=== PATIENT | female | born 1965 | race Hispanic/Latino ===

== ENCOUNTER 2021-06-07 11:44 | Inpatient (IN) | payer OTHER ==
[~2021-06-07] VITALS: Ht 160 cm; Wt 72.8 kg
[2021-06-07 11:49] VITALS: BP 151/78
[2021-06-07 12:30] LABS: BASOPHILS % (AUTO) 0.6 % (0.0-5.0); EOSINOPHILS % (AUTO) 0.8 % (0.0-8.0); HEMATOCRIT 46.2 % (36-48); LYMPHOCYTES % (AUTO) 23.9 % (21.0-51.0); MEAN CORPUSCULAR HGB CONC 34.6 g/dL (32.0-36.0); MEAN CORPUSCULAR VOLUME 92.4 fL (79-99); MONOCYTES % (AUTO) 8.4 % (3.0-13.0); PLATELET COUNT (AUTO) 301 K/uL (130-400); RED CELL DISTRIBUTION WIDTH 12.8 % (11.0-15.5); WHITE BLOOD COUNT (AUTO) 14.2 K/uL (4.8-10.8)
[2021-06-07 12:40] LABS: INR 1.03 (0.85-1.15); PROTHROMBIN TIME 11.2 SEC (9.6-11.6)
[2021-06-07 12:41] LABS: PARTIAL THROMBOPLASTIN TIME 30.7 SEC (26.3-35.5)
[2021-06-07 12:43] LABS: CREATININE 0.8 mg/dL (0.5-1.5); POTASSIUM 3.5 mmol/L (3.5-5.1)
[2021-06-07 12:48] LABS: ALBUMIN 3.6 g/dL (3.5-5.0); BILIRUBIN,TOTAL 0.8 mg/dL (0.2-1.0); TOTAL PROTEIN, SERUM 8.3 g/dL (6.0-8.3)
[2021-06-07 12:52] LABS: B-TYPE NATRIURETIC PEPTIDE 266 pg/mL (0-100)
[2021-06-07 13:39] LABS: CRP QUANTITATIVE 29.2 mg/L (0.00-9.0); MAGNESIUM 1.8 mg/dL (1.80-2.40)
[2021-06-07 15:11] LABS: APPEARANCE,URINE Clear (CLEAR); BILIRUBIN,URINE Moderate (NEGATIVE); COLOR,URINE Dark Yellow (YELLOW); GLUCOSE, URINE (UA) Negative (NEGATIVE); KETONES,URINE Trace mg/dL (NEGATIVE); LEUKOCYTE ESTERASE ,URINE Trace (NEGATIVE); NITRATE,URINE Positive (NEGATIVE); OCCULT BLOOD,URINE Negative (NEGATIVE); PH,URINE 5.5 (5.0-8.0); PROTEIN,URINE POS 2+ mg/dL (NEGATIVE)
[2021-06-07 15:19] LABS: AMPHET/METH SCREEN,URINE NEGATIVE (NEGATIVE); BARBITURATE SCREEN, URINE NEGATIVE (NEGATIVE); BENZODIAZEPINES SCREEN,URINE NEGATIVE (NEGATIVE); CANNABINOID SCREEN,URINE POSITIVE (NEGATIVE); COCAINE SCREEN,URINE POSITIVE (NEGATIVE); OPIATE SCREEN,URINE NEGATIVE (NEGATIVE); PHENCYCLIDINE SCREEN,URINE NEGATIVE (NEGATIVE)
[2021-06-07 15:29] LABS: BACTERIA,URINE Few /HPF (None Seen); MUCUS,URINE Moderate LPF (None Seen); SQUAMOUS EPITHELIAL CELL,UR Few /HPF (0-2)
[2021-06-07] MEDS ORDERED: AMP/SULBAC 3GM+NS 100ML 100 ML IV ONE (16:00)
[2021-06-07] MEDS ORDERED: UNASYN 3GM VIAL IV ONE (16:00)
[2021-06-07 19:47] VITALS: BP 183/108
[2021-06-07] MEDS ORDERED: MORPHINE 2 MG SYG IV PRN (21:00)
[2021-06-07] MEDS ORDERED: ONDANSETRON 4MG INJ IV PRN (21:00)
[2021-06-07] MEDS: 0.9%NACL 50ML 50 ML IV SCH (21:30)
[2021-06-07] MEDS: LACTATED RINGERS 1000ML 1,000 ML IV SCH (21:30)
[2021-06-07] MEDS: ZOSYN 3.375GM+NS 50ML 50 ML IV SCH (21:30)
[2021-06-07] MEDS: FAMOTIDINE 20MG VIAL IV SCH (21:30)
[2021-06-07 21:58] VITALS: BP 162/70
[2021-06-07] MEDS ORDERED: LISINOPRIL 10 MG TABLET PO STA (22:09)
[2021-06-08] VITALS (7 sets, daily range): BP systolic 156–184; BP diastolic 57–84
[2021-06-08] MEDS: 0.9%NACL 50ML 50 ML IV SCH ×3 (05:25→21:00)
[2021-06-08] MEDS: ZOSYN 3.375GM+NS 50ML 50 ML IV SCH ×3 (05:25→22:47)
[2021-06-08 06:56] LABS: BASOPHILS % (AUTO) 0.3 % (0.0-5.0); EOSINOPHILS % (AUTO) 1.1 % (0.0-8.0); HEMATOCRIT 43.3 % (36-48); LYMPHOCYTES % (AUTO) 27.4 % (21.0-51.0); MEAN CORPUSCULAR HGB CONC 34.4 g/dL (32.0-36.0); MEAN CORPUSCULAR VOLUME 92.9 fL (79-99); MONOCYTES % (AUTO) 8.5 % (3.0-13.0); NEUTROPHILS % (AUTO) 62.4 % (40.0-77.0); PLATELET COUNT (AUTO) 244 K/uL (130-400); RED BLOOD CELL COUNT(AUTO) 4.66 MIL/uL (4.00-5.50); RED CELL DISTRIBUTION WIDTH 12.8 % (11.0-15.5); WHITE BLOOD COUNT (AUTO) 11.6 K/uL (4.8-10.8)
[2021-06-08 07:24] LABS: CREATININE 0.8 mg/dL (0.5-1.5); MAGNESIUM 1.9 mg/dL (1.80-2.40); PHOSPHORUS 3.8 mg/dL (2.5-4.9); POTASSIUM 3.3 mmol/L (3.5-5.1); THYROID STIMULATING HORMONE 0.33 uIU/mL (0.36-3.74)
[2021-06-08] MEDS ORDERED: LISINOPRIL 10 MG TABLET PO SCH (09:00)
[2021-06-08] MEDS: FAMOTIDINE 20MG VIAL IV SCH ×2 (09:15→22:46)
[2021-06-08] MEDS: ASPIRIN 81 MG EC TAB PO SCH (09:15)
[2021-06-08] MEDS: LACTATED RINGERS 1000ML 1,000 ML IV SCH (10:20)
[2021-06-08] MEDS: AMLODIPINE 5 MG TAB PO SCH ×2 (13:23→22:47)
[2021-06-08] MEDS: HYDROCODONE/ACETAMINOPHEN 5/325 MG TAB PO PRN (13:33)
[2021-06-09] VITALS (7 sets, daily range): BP systolic 113–201; BP diastolic 58–94
[2021-06-09] MEDS ORDERED: POTASSIUM CHLORIDE 10% ELIXIR 20 MEQ/15 ML UDCUP PO PRN (03:30)
[2021-06-09] MEDS ORDERED: POTASSIUM CHLORIDE 20MEQ/100ML 100 ML IV PRN (03:30)
[2021-06-09] MEDS ORDERED: LIDOCAINE HCL-MPF 1% 2ML VIAL IV PRN (03:30)
[2021-06-09 05:03] LABS: BASOPHILS % (AUTO) 0.5 % (0.0-5.0); EOSINOPHILS % (AUTO) 1.7 % (0.0-8.0); HEMATOCRIT 41.4 % (36-48); LYMPHOCYTES % (AUTO) 41.6 % (21.0-51.0); MEAN CORPUSCULAR HEMOGLOBIN 31.7 pg (27.0-33.0); MEAN CORPUSCULAR HGB CONC 34.8 g/dL (32.0-36.0); MEAN CORPUSCULAR VOLUME 91.2 fL (79-99); MONOCYTES % (AUTO) 6.7 % (3.0-13.0); NEUTROPHILS % (AUTO) 49.3 % (40.0-77.0); PLATELET COUNT (AUTO) 267 K/uL (130-400); RED BLOOD CELL COUNT(AUTO) 4.54 MIL/uL (4.00-5.50); RED CELL DISTRIBUTION WIDTH 12.1 % (11.0-15.5); WHITE BLOOD COUNT (AUTO) 10.1 K/uL (4.8-10.8)
[2021-06-09 05:09] LABS: CREATININE 0.7 mg/dL (0.5-1.5); POTASSIUM 3.4 mmol/L (3.5-5.1)
[2021-06-09] MEDS: ZOSYN 3.375GM+NS 50ML 50 ML IV SCH ×3 (06:05→20:03)
[2021-06-09] MEDS: 0.9%NACL 50ML 50 ML IV SCH ×3 (06:05→20:03)
[2021-06-09] MEDS: KCL 20 MEQ ERTAB PO PRN ×3 (06:37→12:28)
[2021-06-09] MEDS: ASPIRIN 81 MG EC TAB PO SCH (08:10)
[2021-06-09] MEDS: FAMOTIDINE 20MG VIAL IV SCH ×2 (08:10→20:03)
[2021-06-09] MEDS: AMLODIPINE 5 MG TAB PO SCH ×2 (08:10→20:04)
[2021-06-09] MEDS: HYDROCODONE/ACETAMINOPHEN 5/325 MG TAB PO PRN ×2 (08:35→20:04)
[2021-06-09] MEDS ORDERED: HYDRALAZINE 20MG/ML VIAL IV PRN (12:00)
[2021-06-09] MEDS ORDERED: LISINOPRIL 10 MG TABLET PO SCH (12:00)
[2021-06-10 04:16] VITALS: BP 183/81
[2021-06-10 04:54] LABS: BASOPHILS % (AUTO) 0.6 % (0.0-5.0); EOSINOPHILS % (AUTO) 2.9 % (0.0-8.0); HEMATOCRIT 43.4 % (36-48); LYMPHOCYTES % (AUTO) 43.8 % (21.0-51.0); MEAN CORPUSCULAR HGB CONC 34.1 g/dL (32.0-36.0); MEAN CORPUSCULAR VOLUME 93.7 fL (79-99); MONOCYTES % (AUTO) 7.9 % (3.0-13.0); NEUTROPHILS % (AUTO) 44.6 % (40.0-77.0); PLATELET COUNT (AUTO) 296 K/uL (130-400); RED BLOOD CELL COUNT(AUTO) 4.63 MIL/uL (4.00-5.50); RED CELL DISTRIBUTION WIDTH 12.3 % (11.0-15.5)
[2021-06-10] MEDS: 0.9%NACL 50ML 50 ML IV SCH ×2 (05:09→12:44)
[2021-06-10] MEDS: ZOSYN 3.375GM+NS 50ML 50 ML IV SCH ×2 (05:09→12:42)
[2021-06-10 05:13] LABS: CREATININE 0.8 mg/dL (0.5-1.5); POTASSIUM 3.9 mmol/L (3.5-5.1)
[2021-06-10 08:00] VITALS: BP 175/88
[2021-06-10] MEDS: FAMOTIDINE 20MG VIAL IV SCH (08:20)
[2021-06-10] MEDS: AMLODIPINE 5 MG TAB PO SCH (08:20)
[2021-06-10] MEDS: ASPIRIN 81 MG EC TAB PO SCH (08:20)
[2021-06-10] MEDS ORDERED: LISINOPRIL 20 MG TABLET PO SCH (10:00)
[2021-06-10 11:55] VITALS: BP 159/81
[2021-06-10] MEDS ORDERED: ACETAMINOPHEN 325 MG TAB PO PRN (12:30)
[2021-06-10 16:00] VITALS: BP 157/88
[2021-06-10] MEDS ORDERED: AMOX-426 PO (16:16)
[2021-06-10] MEDS ORDERED: ACET1TAB25 PO (16:16)
[2021-06-10] MEDS ORDERED: LISI20TA24 PO (16:16)
[2021-06-10] MEDS ORDERED: AMLO-257 PO (16:16)
== END 2021-06-10 18:43 | disposition home or self-care (01) | DRG 603 ==
LOC: EDH 11:44 → EDHIP 11:45 → 4DH 06-08 10:15
PROVIDERS: ADMIT Internal Medicine; ATTEND Internal Medicine
DX: L03.211 Cellulitis of face (principal); N39.0 Urinary tract infection, site not specified; K04.6 Periapical abscess with sinus; I10 Essential (primary) hypertension; F17.210 Nicotine dependence, cigarettes, uncomplicated; F12.90 Cannabis use, unspecified, uncomplicated; Z60.2 Problems related to living alone; F19.10 Other psychoactive substance abuse, uncomplicated; F14.10 Cocaine abuse, uncomplicated; J32.9 Chronic sinusitis, unspecified; G56.00 Carpal tunnel syndrome, unspecified upper limb; Z90.710 Acquired absence of both cervix and uterus; Z85.3 Personal history of malignant neoplasm of breast
CPT/HCPCS: 36415; 70450; 70486; 70551; 71045; 80048; 80053; 80305; 81001; 82550; 83605; 83721; 83735; 83880; 84100; 84145; 84443; 84484; 85025; 85610; 85730; 86140; 86850; 86900; 86901; 87040; 87088; 87635; 92522; 92610; 93005; G0378; J0295; J0360; J2543; J3490; J7120

== ENCOUNTER 2024-01-07 22:49 | Emergency (ER) | payer OTHER ==
[~2024-01-07 22:49] MED LIST: ACET-2079 PO; AMLO-257 PO; AMOX-426 PO; LISI20TA24 PO
[2024-01-07] MEDS: LACTATED RINGERS 1000ML 1,000 ML IV ONE (23:23)
[2024-01-07] MEDS: MORPHINE 2 MG SYG IVP ONE (23:23)
[2024-01-07] MEDS: ONDANSETRON 4MG INJ IVP ONE (23:23)
[2024-01-07 23:35] LABS: BASOPHILS # (AUTO) 0.07 K/uL (0.00-0.20); BASOPHILS % (AUTO) 0.5 % (0.0-5.0); EOSINOPHILS # (AUTO) 0.31 K/uL (0.00-0.70); EOSINOPHILS % (AUTO) 2.3 % (0.0-8.0); HEMATOCRIT 45.8 % (36-48); IMMATURE GRANULOCYTE ABSOLUTE 0.04 K/uL (0-1); LYMPHOCYTES # (AUTO) 5.6 K/uL (1.0-4.8); LYMPHOCYTES % (AUTO) 40.7 % (21.0-51.0); MEAN CORPUSCULAR HEMOGLOBIN 32.1 pg (27.0-33.0); MEAN CORPUSCULAR HGB CONC 34.5 g/dL (32.0-36.0); MEAN CORPUSCULAR VOLUME 93.1 fL (79-99); MONOCYTES # (AUTO) 0.9 K/uL (0.1-1.0); MONOCYTES % (AUTO) 6.3 % (3.0-13.0); NEUTROPHILS # (AUTO) 6.8 K/uL (1.8-7.7); NEUTROPHILS % (AUTO) 49.9 % (40.0-77.0); PLATELET COUNT (AUTO) 272 K/uL (130-400); RED BLOOD CELL COUNT(AUTO) 4.92 MIL/uL (4.00-5.50); RED CELL DISTRIBUTION WIDTH 12.4 % (11.0-15.5); WHITE BLOOD COUNT (AUTO) 13.7 K/uL (4.8-10.8)
[2024-01-07 23:47] LABS: CREATININE 0.9 mg/dL (0.5-1.0); POTASSIUM 3.7 mmol/L (3.5-5.1)
[2024-01-07 23:51] LABS: ALBUMIN 3.4 g/dL (3.5-5.0); BILIRUBIN,TOTAL 0.4 mg/dL (0.2-1.0); TOTAL PROTEIN, SERUM 7.5 g/dL (6.0-8.3)
[2024-01-08] MEDS ORDERED: IOHEXOL 350 MG/ML 100ML INFUS..BTL IV ONE (00:29)
[2024-01-08 00:32] LABS: APPEARANCE,URINE CLEAR (CLEAR); BILIRUBIN,URINE NEGATIVE (NEGATIVE); COLOR,URINE YELLOW (YELLOW); GLUCOSE, URINE (UA) NEGATIVE (NEGATIVE); KETONES,URINE NEGATIVE (NEGATIVE); LEUKOCYTE ESTERASE ,URINE NEGATIVE Leu/uL (NEGATIVE); NITRATE,URINE NEGATIVE (NEGATIVE); OCCULT BLOOD,URINE NEGATIVE (NEGATIVE); PROTEIN,URINE NEGATIVE (NEGATIVE); UROBILINOGEN,URINE 0.2 mg/dL (0.2-1.0)
[2024-01-08 00:36] LABS: ADD UA MICROSCOPIC NO
[2024-01-08] MEDS: MORPHINE 2 MG SYG IVP ONE (00:50)
[2024-01-08] MEDS ORDERED: NA P133E4 RC (01:48)
[2024-01-08] MEDS: MAGNESIUM CITRATE 296 ML SOLUTION PO ONE (02:29)
[2024-01-08] MEDS ORDERED: OMEP40CA21 PO (02:54)
[2024-01-08] MEDS ORDERED: DICY20TA2 PO (02:54)
[2024-01-08 03:05] VITALS: BP 148/87; PULSE 75; RESP 18; O2SAT 98
== END 2024-01-08 03:05 | disposition home or self-care (01) ==
LOC: EDH 22:49
DX: K59.00 Constipation, unspecified (principal); K80.50 Calculus of bile duct without cholangitis or cholecystitis without obstruction; I10 Essential (primary) hypertension; F17.200 Nicotine dependence, unspecified, uncomplicated; Z79.899 Other long term (current) drug therapy; Z90.49 Acquired absence of other specified parts of digestive tract
CPT/HCPCS: 99285; 74177; 96374; 96375; 82150; 84484; 80053; 83690; 85025; 81003; 36415; 93005; 76705; 96376; J7120; J2270 ×2; J2405; Q9967